=== PATIENT | male | born 1940 | race Caucasian/White ===

== ENCOUNTER 2016-08-13 12:25 | Emergency (ER) | payer MEDICARE, MEDICAID ==
[2016-08-13 13:39] VITALS: TEMP 98.2; BMI 24.5
[2016-08-13 13:53] LABS: ABG Draw Site Right Radial; ALLEN'S TEST PASS; BEb 0.7 (+/- 2)
[2016-08-13 13:54] LABS: TCO2 26.6 MMOL/L (23-27)
[2016-08-13 14:05] LABS: BLOOD UREA NITROGEN 8 MG/DL (9-20); CALCIUM 8.8 MG/DL (8.4-10.2); CALCULATED OSMOLALITY 268 MOs/Kg (270-290); CHLORIDE 100 mEq/L (98-107); GLUCOSE 110 MG/DL (70-99); SODIUM LEVEL 140 mEq/L (137-146)
[2016-08-13 14:08] LABS: AUTOMATED BASOPHIL 0.5 % (0-2); AUTOMATED EOSINOPHIL 0.3 % (0-5); AUTOMATED LYMPH 17.9 % (17-44); AUTOMATED MONOCYTE 10.9 % (3-10); AUTOMATED NEUTROPHIL 70.4 % (45-76); MPV 7.8 fL (7.4-10.4)
--- NOTE | 2016-08-13 14:11 | DIRPT ---
CLINICAL DATA: 76-year-old male with cough and congestion for 1 week. EXAM: CHEST 2 VIEW COMPARISON: 11/02/2014 and 09/22/2012 radiographs FINDINGS: Cardiomegaly and COPD/emphysema noted. Right basilar opacity may represent atelectasis or airspace disease. There is no evidence of pleural effusion or pneumothorax. No acute bony abnormalities new are present. IMPRESSION: Right basilar atelectasis versus airspace disease. Pneumonia is not excluded. Cardiomegaly and COPD/ emphysema. Electronically Signed By: Michael Guerra M.D. On: 08/13/2016 14:08
[2016-08-13] MEDS ORDERED: METHYLPREDNISOLONE 125 MG/2 ML VIAL IV ONE (15:47)
[2016-08-13] MEDS ORDERED: Albuterol/Ipratropium Neb 3 ML NEB NEB ONE (15:47)
[2016-08-13] MEDS ORDERED: CEFTRIAXONE 1 GM in D5W 100 ML IV ONE (15:48)
[2016-08-13] MEDS ORDERED: GUAIFENESIN 600 MG LA TAB PO ONE (15:49)
--- NOTE | 2016-08-13 15:50 | EDPRACDOC ---
- General Information Chief Complaint: Dyspnea/Resp distress Stated Complaint: COUGH/ASHELY/SHOB Time Seen by Provider: 08/13/16 15:44 Information Source: Patient Mode Of Arrival: Car Home Medications: Home Medications Cefuroxime [Ceftin] 500 mg PO BIDWM #14 tablet 11/06/14 Probiotic Blend [Mayela Q] 1 tab PO BIDLS #60 tablet 11/06/14 Albuterol Sulfate [Ventolin] 3 ml NEB Q2H PRN #100 nebu 08/13/16 Albuterol/Ipratropium Neb [Duoneb] 3 ml NEB RTQ6 #120 nebu 08/13/16 Azithromycin [Zithromax] 250 mg PO DAILY #6 tablet 08/13/16 Guaifenesin [Mucinex] 1,200 mg PO Q12 #20 tablet.er 08/13/16 Levofloxacin [Levaquin] 750 mg PO DAILY #5 tablet 08/13/16 Prednisone [Sterapred 10 mg/6 day pack] 0 tab PO 0730,1230,1800,2200 #1 pack 09/28 Allergies/Adverse Reactions: Allergies Allergy/AdvReac Type Severity Reaction Status Date / Time No Known Allergies Allergy Verified 11/02/14 18:38 - History of Present Illness Onset: SATURDAY HPI: PT PRESENTS WITH PRODUCTIVE COUGH, CONGESTION AND WHEEZING. PT STATES HE HAS KNOWN COPD AND CONTINUES TO SMOKE. STATES HE IS JUST HAVING A HARD TIME GETTING THE SPUTUM UP. DENIES FEVER, CHILLS, NAUSEA OR VOMITING. Current Symptoms: Reports: Cough Shortness of Breath: Mild Cough: Reports: Productive, Green, Yellow Rhinorrhea: Reports: Clear Ear Symptoms: Reports: None Fever Severity/Quality: Reports: no fever Oral Intake: Normal Urinary Output: Normal Relevant History of: None ED Past Medical History - History Reviewed Yes Nurses notes reviewed and agree except as marked - Patient Medical History Cardiac History: Reports: Heart Attack ("MANY YEARS AGO HAD A LIGHT HEART ATTACK "). Denies: Hypertension Respiratory History: Reports: COPD Psychological History: Denies: Substance Use Disorder - Family Medical History Reports: Cancer (Father: prostate cancer). Denies: Hypertension, Diabetes, Stroke, Cardiac Disorders - Social Medical History Smoking Status: Heavy tobacco smoker (5 or more cigarettes/day or daily pipe/ cigar) Social History: Denies: Substance Use Disorder EDM Review of Systems - Review of Systems ROS Negative Except as Marked: Yes All systems reviewed and were negative except as marked - Physical Exam Constitutional: Alert Oriented to: Time, Person, Place Last recorded Vital Signs: Last Vital Signs Temp 98.2 F 08/13/16 13:38 Pulse 104 08/13/16 13:38 Resp 24 08/13/16 13:38 BP 147/68 08/13/16 13:38 Pulse Ox 96 08/13/16 13:38 Oxygen Pulse Oxygen Saturation 96 O2 Device Room Air Oxygen Flow Rate Fraction of Inspired Oxygen ( FIO2) - HEENT Head: Normal ( normocephalic) Eye Exam: Normal (PERRL, EOMI, Sclera white) Oropharynx: Normal (Pharynx:Moist without exudate,Gums-no swelling) Tympanic Membrane: Normal Nose: No Symptoms Reported (septum midline) Neck: Normal (FROM, trachea at midline) - Respiratory/Cardiovascular Respiratory: Rhonchi, Wheezes Cardiovascular: Tachycardia - GI Auscultation: Normal (NABS) Palpation: Normal (Soft,No rebound or guarding, non distended) Tenderness: Non tender Chawla's Sign: Negative Rectal Exam: Deferred - Musculoskeletal Back: Normal (Non-Tender) Extremities: Normal (Normal tone, Pulses 2+ No cyanosis or edema, FROM) - Integumentary Skin: Normal, Warm, Dry Lymphatics: Normal (no adenopathy) - Neurologic Memory Impaired: Normal Motor Function: Normal (Normal tone, Pulses 2+ No cyanosis or edema, FROM) Cranial Nerve: Normal (CN II-X11 intact sensation, strength 5/5) Cerebellar: Normal Mood Description: Normal Perception: Normal - Differential Diagnosis Pneumonia - Results 08/13/16 13:44 08/13/16 13:44 WBC 10.7 xk/uL (3.8-10.8) 08/13/16 13:44 RBC 5.44 xM/uL (4.70-6.10) 08/13/16 13:44 Hgb 16.3 g/dL (14.0-18.0) 08/13/16 13:44 Hct 48.4 % (42-52) 08/13/16 13:44 MCV 89 fL (80-94) 08/13/16 13:44 MCH 29.9 pg (27-32) 08/13/16 13:44 MCHC 33.6 g/dl (33-36) 08/13/16 13:44 RDW 15.8 % (11.5-14.5) H 08/13/16 13:44 Plt Count 175 xk/uL (130-400) 08/13/16 13:44 MPV 7.8 fL (7.4-10.4) 08/13/16 13:44 Neut % (Auto) 70.4 % (45-76) 08/13/16 13:44 Lymph % (Auto) 17.9 % (17-44) 08/13/16 13:44 [place] % (Auto) 10.9 % (3-10) H 08/13/16 13:44 Eos % (Auto) 0.3 % (0-5) 08/13/16 13:44 Baso % (Auto) 0.5 % (0-2) 08/13/16 13:44 Absolute Neuts (auto) 7.49 xk/uL (1.7-8.2) 08/13/16 13:44 Absolute Lymphs (auto) 1.82 xk/uL (0.65-4.75) 08/13/16 13:44 Puncture Site Right radial 08/13/16 13:50 pH 7.410 pH UNITS (7.35-7.45) 08/13/16 13:50 pCO2 40.0 mmHg (35-45) 08/13/16 13:50 pO2 60.0 mmHg (80-100) L 08/13/16 13:50 HCO3 25.4 MMOL/L (22-26) 08/13/16 13:50 Total CO2 26.6 MMOL/L (23-27) 08/13/16 13:50 Base Excess 0.7 (+/- 2) 08/13/16 13:50 FiO2 % .21 08/13/16 13:50 Specimen Drawn By Sy 08/13/16 13:50 Sodium 140 mEq/L (137-146) 08/13/16 13:44 Potassium 3.9 mEq/L (3.5-5.1) 08/13/16 13:44 Chloride 100 mEq/L (98-107) 08/13/16 13:44 Carbon Dioxide 29 mMOL/L (22-33) 08/13/16 13:44 Anion Gap 15 mEq/L (8-16) 08/13/16 13:44 BUN 8 MG/DL (9-20) L 08/13/16 13:44 Creatinine 0.70 MG/DL (0.66-1.25) 08/13/16 13:44 Estimated GFR (MDRD) > 60 mL/min (>=60) 08/13/16 13:44 Glucose 110 MG/DL (70-99) H 08/13/16 13:44 Calculated Osmolality 268 MOs/Kg (270-290) L 08/13/16 13:44 Lactic Acid 1.8 mEq/L (0.7-2.1) 08/13/16 13:44 Calcium 8.8 MG/DL (8.4-10.2) 08/13/16 13:44 Corrected Calcium 9.0 MG/DL (8.4-10.2) 08/13/16 13:44 Total Bilirubin 0.7 MG/DL (0.2-1.3) 08/13/16 13:44 AST 20 IU/L (17-59) 08/13/16 13:44 ALT 13 IU/L (21-72) L 08/13/16 13:44 Alkaline Phosphatase 117 IU/L (50-160) 08/13/16 13:44 Total Protein 8.0 G/DL (6.3-8.2) 08/13/16 13:44 Albumin 3.8 G/DL (3.5-5.0) 08/13/16 13:44 Lab Results 08/13/16 08/13/16 08/13/16 13:50 13:44 13:44 WBC 10.7 RBC 5.44 Hgb 16.3 Hct 48.4 MCV 89 MCH 29.9 MCHC 33.6 RDW 15.8 H Plt Count 175 MPV 7.8 Neut % (Auto) 70.4 Lymph % (Auto) 17.9 [place] % (Auto) 10.9 H Eos % (Auto) 0.3 Baso % (Auto) 0.5 Absolute Neuts (auto) 7.49 Absolute Lymphs (auto) 1.82 Puncture Site Right radial pH 7.410 pCO2 40.0 pO2 60.0 L HCO3 25.4 Total CO2 26.6 Base Excess 0.7 FiO2 % .21 Specimen Drawn By Sy Sodium Potassium Chloride Carbon Dioxide Anion Gap BUN Creatinine Estimated GFR (MDRD) Glucose Calculated Osmolality Lactic Acid 1.8 Calcium Corrected Calcium Total Bilirubin AST ALT Alkaline Phosphatase Total Protein Albumin 08/13/16 13:44 WBC RBC Hgb Hct MCV MCH MCHC RDW Plt Count MPV Neut % (Auto) Lymph % (Auto) [place] % (Auto) Eos % (Auto) Baso % (Auto) Absolute Neuts (auto) Absolute Lymphs (auto) Puncture Site pH pCO2 pO2 HCO3 Total CO2 Base Excess FiO2 % Specimen Drawn By Sodium 140 Potassium 3.9 Chloride 100 Carbon Dioxide 29 Anion Gap 15 BUN 8 L Creatinine 0.70 Estimated GFR (MDRD) > 60 Glucose 110 H Calculated Osmolality 268 L Lactic Acid Calcium 8.8 Corrected Calcium 9.0 Total Bilirubin 0.7 AST 20 ALT 13 L Alkaline Phosphatase 117 Total Protein 8.0 Albumin 3.8 Decision Time to Discharge: 16:06 - Departure Disposition: Home Condition: Stable Final Diagnosis: Pneumonia Qualifiers: Pneumonia type: due to unspecified organism Laterality: right Lung location: unspecified part of lung Qualified Code(s): J18.9 - Pneumonia, unspecified organism Instructions: Community Acquired Pneumonia (ED) Education/Counseling Given To: Patient Education/Counseling Given Regarding: Diagnosis, Treatment, Prognosis, Follow Up Referrals: Mckay Stanley II, MD [Staff Physician] - One Week Prescriptions: Albuterol Sulfate [Ventolin] 3 ml NEB Q2H PRN #100 nebu PRN Reason: Shortness Of Breath Albuterol/Ipratropium Neb [Duoneb] 3 ml NEB RTQ6 #120 nebu Azithromycin [Zithromax] 250 mg PO DAILY #6 tablet Guaifenesin [Mucinex] 1,200 mg PO Q12 #20 tablet.er Levofloxacin [Levaquin] 750 mg PO DAILY #5 tablet Prednisone [Sterapred 10 mg/6 day pack] 0 tab PO 0730,1230,1800,2200 #1 pack Additional Instructions: INCREASE FLUID INTAKE. FOLLOW UP WITH PRIMARY CARE PROVIDER NEXT WEEK. TAKE ALL ANTIBIOTICS PRESCRIBED. RETURN TO THE ED FOR WORSENING SYMPTOMS OR CONCERNS.
[2016-08-13] MEDS ORDERED: AZITHROMYCIN 250 MG TAB PO ONE (15:52)
[2016-08-13 16:25] VITALS: BP 140/66; PULSE 97
== END 2016-08-13 16:42 | disposition home or self-care (01) ==
LOC: ED 12:25
DX: J18.9 Pneumonia, unspecified organism (principal)
CPT/HCPCS: 36415; 36600; 71020; 80053; 82803; 83605; 85025; 87040; 94640; 96375; 99283; A9270; J0696; J2930; J7060; J7620; J3490